=== PATIENT | female | born 1970 | race Caucasian/White ===

== ENCOUNTER → 2017-02-21 | Day surgery (SDC) | payer MEDICARE, MEDICAID ==
[~2017-02-21] VITALS: Ht 154.9 cm; Wt 125.5 kg
[~2017-02-21] MED LIST: BENADRYL25 MG PO; CIPRO500 MG PO; CPAP INH; FIBER LAX625 MG PO; FIBERCON1 TAB PO; FLAGYL500 MG PO; FLEXERIL10 MG PO; FLONASE 50 MCG/16 GM NOSE; NAPROSYN500 MG PO; PROAIR HFA8.5 GM INH; SYMBICORT 16010.2 GM INH; XOLAIR150 MG SUB-Q
== END ==
LOC: GPOC 02-18 10:00 → GEND 07:16 → GPOC 07:30
PROC: 0DB68ZX Excision of Stomach, Via Natural or Artificial Opening Endoscopic, Diagnostic (ICD-10-PCS; principal; 2017-02-21)
PROC: 0DB88ZX Excision of Small Intestine, Via Natural or Artificial Opening Endoscopic, Diagnostic (ICD-10-PCS; 2017-02-21)
PROC: 0DJD8ZZ Inspection of Lower Intestinal Tract, Via Natural or Artificial Opening Endoscopic (ICD-10-PCS; 2017-02-21)
DX: K31.7 Polyp of stomach and duodenum (principal); K57.92 Diverticulitis of intestine, part unspecified, without perforation or abscess without bleeding; K21.9 Gastro-esophageal reflux disease without esophagitis; K64.9 Unspecified hemorrhoids; E66.01 Morbid (severe) obesity due to excess calories; G47.33 Obstructive sleep apnea (adult) (pediatric); J30.9 Allergic rhinitis, unspecified; J45.909 Unspecified asthma, uncomplicated
CPT/HCPCS: J2001; J7030

== ENCOUNTER → 2017-05-15 | Outpatient (CLI) | payer MEDICARE, MEDICAID | END | disposition disaster alternative care site (69) | LOC: GRAD 11:51 | DX: M54.16 Radiculopathy, lumbar region (principal); M47.896 Other spondylosis, lumbar region; M41.9 Scoliosis, unspecified ==

== ENCOUNTER 2017-06-16 00:52 | Emergency (ER) | payer MEDICARE, MEDICAID ==
--- NOTE | ~2017-06-16 | ER ---
PATIENT'S NAME: KELLY GARCIA [facility] AGE: 46 Y [address] ROOM: [place] [address] LOCATION: [facility] ADMIT DATE: 06/16/2017 ER/Outpatient Report DISCHARGE DATE: 06/16/2017 FAMILY PHYSICIAN: Baljit Coronado MD ATTENDING PHYSICIAN: Lance Escalera CHIEF COMPLAINT: Left-sided back pain. HISTORY OF PRESENT ILLNESS: Ms. Garcia has a known history of chronic low back pain. This is slightly different than usual. It is located on the left side, most prominently in her mid back. It is not in the midline. It got worse after spending the afternoon on the floor with toddlers. She states that her home tramadol and Flexeril have not been helping adequately. She was unable to sleep and came in for symptom relief. She denies any new neurologic symptoms such as numbness, tingling, bowel or bladder dysfunction, or weakness. PAST MEDICAL HISTORY: Documented on the record and reviewed by me. SOCIAL HISTORY: Documented on the record and reviewed by me. MEDICATIONS: Documented on the record and reviewed by me. ALLERGIES: DOCUMENTED ON THE RECORD AND REVIEWED BY ME. REVIEW OF SYSTEMS: All systems were reviewed and negative except as noted in the HPI. PHYSICAL EXAMINATION: VITAL SIGNS: Blood pressure 146/97, pulse 79, respiratory rate 16, temperature 98 degrees, and SpO2 is 98% on room air. Pain is rated at 7/10. GENERAL: An age-appropriate female, in no obvious pain or distress, upright on exam table, nu movements. NEUROLOGIC: Awake and alert. GCS is 15. No asymmetry of the lower extremities strength. No gait abnormalities; purposeful but otherwise unremarkable. No focal deficits. No sensory deficits. HEENT: Normocephalic and atraumatic. Eyes are PERRL. Oropharynx is clear. NECK: Supple. Trachea is midline. CHEST: Even and unlabored respirations. HEART: Regular rate and rhythm. PATIENT'S NAME: KELLY GARCIA [facility] AGE: 46 Y [address] ROOM: [place] [address] LOCATION: [facility] ADMIT DATE: 06/16/2017 ER/Outpatient Report DISCHARGE DATE: 06/16/2017 FAMILY PHYSICIAN: Baljit Coronado MD ATTENDING PHYSICIAN: Lance Escalera ABDOMEN: Soft and benign. EXTREMITIES: Warm and well perfused. SKIN: Intact. LABORATORY DATA AND X-RAYS: None. IMPRESSION: Musculoskeletal acute back pain. EMERGENCY DEPARTMENT COURSE: The patient was seen and evaluated. She was given a prescription for methocarbamol. Recommend taking this with tramadol as needed. Cessation of Flexeril if taking methocarbamol. Recommend holding naproxen as well. Follow up with PCP as needed. Return immediately if neurologic symptoms. All questions answered. The patient was discharged in good condition. MD ROSIO DONOHUE/jared /[id number] d: 06/16/17 1220 t: 06/18/17 1244, OUTPATIENT REPORT
== END 2017-06-16 01:15 | disposition disaster alternative care site (69) ==
LOC: GMED 00:52
DX: M54.6 Pain in thoracic spine (principal); Z90.710 Acquired absence of both cervix and uterus; Z79.899 Other long term (current) drug therapy; Z98.890 Other specified postprocedural states